=== PATIENT | male | born 1955 | race American Indian/Alaskan Native ===

== ENCOUNTER 2018-07-20 10:06 | Emergency (ER) | payer OTHER ==
--- NOTE | 2018-07-20 12:25 | Emergency Department Report ---
ED General Adult HPI - General Chief complaint: Back Pain/Injury Stated complaint: BACK PAIN Time Seen by Provider: 07/20/18 12:01 Source: patient Mode of arrival: Ambulatory Limitations: No Limitations - History of Present Illness Initial comments: Patient presents to the emergency department with chief complaint of shoulder/neck pain that started 2 weeks ago. Patient states that he woke up with this pain approximately 2 weeks ago and has only had relief with 800 mg of Motrin. Patient states it feels like his muscles or having spasms. Patient de nies any numbness, tingling, facial droop, slurred speech. -: Sudden Location: upper extremity Radiation: non-radiation Severity scale (0 -10): 10 Quality: aching Consistency: constant Improves with: rest Worsens with: movement Associated Symptoms: denies other symptoms Treatments Prior to Arrival: none - Related Data Previous Rx's Medication Instructions Recorded Last Taken Type Diazepam [Valium] 5 mg PO BID PRN #10 tablet 07/20/18 Unknown Rx Ibuprofen [Motrin] 800 mg PO Q8HR PRN #30 tablet 07/20/18 Unknown Rx predniSONE [Deltasone] 20 mg PO DAILY #15 tablet 07/20/18 Unknown Rx traMADol [Ultram] 50 mg PO Q6HR PRN #20 tablet 07/20/18 Unknown Rx Allergies Allergy/AdvReac Type Severity Reaction Status Date / Time No Known Allergies Allergy Verified 07/20/18 10:24 ED Review of Systems ROS: Stated complaint: BACK PAIN Other details as noted in HPI Comment: All other systems reviewed and negative Constitutional: denies: chills, fever Eyes: denies: eye pain, eye discharge, vision change ENT: denies: ear pain, throat pain Respiratory: denies: cough, shortness of breath, wheezing Cardiovascular: denies: chest pain, palpitations Endocrine: no symptoms reported Gastrointestinal: denies: abdominal pain, nausea, diarrhea Genitourinary: denies: urgency, dysuria Musculoskeletal: denies: back pain, joint swelling, arthralgia Skin: denies: rash, lesions Neurological: denies: headache, weakness, paresthesias Psychiatric: denies: anxiety, depression Hematological/Lymphatic: denies: easy bleeding, easy bruising ED Past Medical Hx - Past Medical History Previous Medical History?: No - Surgical History Past Surgical History?: No - Social History Smoking Status: Never Smoker Substance Use Type: Alcohol - Medications Home Medications: Home Medications Medication Instructions Recorded Confirmed Last Taken Type Diazepam [Valium] 5 mg PO BID PRN #10 tablet 07/20/18 Unknown Rx Ibuprofen [Motrin] 800 mg PO Q8HR PRN #30 tablet 07/20/18 Unknown Rx predniSONE [Deltasone] 20 mg PO DAILY #15 tablet 07/20/18 Unknown Rx traMADol [Ultram] 50 mg PO Q6HR PRN #20 tablet 07/20/18 Unknown Rx ED Physical Exam - General Limitations: No Limitations General appearance: alert, in no apparent distress - Head Head exam: Present: atraumatic, normocephalic - Eye Eye exam: Present: normal appearance - ENT ENT exam: Present: mucous membranes moist - Neck Neck exam: Present: normal inspection, other (tenderness to palpation of the left trapezius from insertion to origin with obvious spasms on exam) - Respiratory Respiratory exam: Present: normal lung sounds bilaterally. Absent: respiratory distress - Cardiovascular Cardiovascular Exam: Present: regular rate, normal rhythm. Absent: systolic murmur, diastolic murmur, rubs, gallop - Rectal Rectal exam: Present: deferred - Extremities Exam Extremities exam: Present: normal inspection - Back Exam Back exam: Present: normal inspection - Neurological Exam Neurological exam: Present: alert, oriented X3, CN II-XII intact. Absent: motor sensory deficit - Psychiatric Psychiatric exam: Present: normal affect, normal mood - Skin Skin exam: Present: warm, dry, intact, normal color. Absent: rash ED Course Vital Signs 07/20/18 10:24 Temperature 97.8 F Pulse Rate 85 Respiratory 16 Rate Blood Pressure 156/90 [Left] O2 Sat by Pulse 100 Oximetry ED Medical Decision Making - Medical Decision Making Discussed plan of care with the patient and the need to follow with his primary care physician for further evaluation and possible therapy Critical care attestation.: If time is entered above; I have spent that time in minutes in the direct care of this critically ill patient, excluding procedure time. ED Disposition Clinical Impression: Muscle spasm Disposition: DC-01 TO HOME OR SELFCARE Is pt being admited?: No Does the pt Need Aspirin: No Condition: Stable Instructions: Muscle Spasm (ED) Additional Instructions: return if worse Prescriptions: Diazepam [Valium] 5 mg PO BID PRN #10 tablet PRN Reason: Spasms Ibuprofen [Motrin] 800 mg PO Q8HR PRN #30 tablet PRN Reason: Pain predniSONE [Deltasone] 20 mg PO DAILY #15 tablet traMADol [Ultram] 50 mg PO Q6HR PRN #20 tablet PRN Reason: Pain Referrals: POLI ALVAREZ MD [Staff Physician] - 3-5 Days [facility] [Provider Group] - 3-5 Days [facility] [Provider Group] - 3-5 Days Time of Disposition: 12:24
== END 2018-07-20 12:34 | disposition home or self-care (01) ==
LOC: ED 10:06
DX: M62.838 Other muscle spasm (principal)
CPT/HCPCS: 99282

== ENCOUNTER 2021-08-17 09:43 | Emergency (ER) | payer MEDICARE, OTHER ==
[2021-08-17 10:11] VITALS: BP 156/82
[2021-08-17] MEDS ORDERED: IBUPROFEN 800 MG TAB PO ONE (12:50)
[2021-08-17] MEDS ORDERED: dexAMETHasone 4 MG/ML VIAL IM ONE (12:50)
[2021-08-17] MEDS ORDERED: CYCLOBENZAPRINE 10 MG TAB PO ONE (12:50)
--- NOTE | 2021-08-17 13:26 | XRay Report ---
LUMBOSACRAL SPINE 3 VIEWS INDICATION: pain sp fall. COMPARISON: None. IMPRESSION: There is mild dextrocurvature of the lumbar spine. Normal alignment on the lateral view. Moderate to severe degenerative changes are noted at the lowest 3 levels. L5-S1 is most affected. T here are moderate symmetric degenerative changes at the SI joints. No acute osseous or soft tissue a bnormality. Signer Name: Eb Ross Jr, MD Signed: 08/17/2021 1:21 PM Workstation Name: [id number]
--- NOTE | 2021-08-17 13:55 | Emergency Department Report ---
ED Back Pain/Injury HPI - General Chief Complaint: Back Pain/Injury Stated Complaint: BACK PAIN Time Seen by Provider: 08/17/21 12:49 Source: patient Limitations: No Limitations - Related Data Previous Rx's Medication Instructions Recorded Last Taken Type Cyclobenzaprine [Flexeril] 10 mg PO TID PRN #10 tablet 08/17/21 Unknown Rx predniSONE [Deltasone] 20 mg PO DAILY #5 tablet 08/17/21 Unknown Rx Allergies Allergy/AdvReac Type Severity Reaction Status Date / Time No Known Allergies Allergy Verified 08/17/21 10:08 ED Review of Systems ROS: Stated complaint: BACK PAIN Other details as noted in HPI Comment: All other systems reviewed and negative ED Past Medical Hx - Past Medical History Medical history: hypertension Family history: no significant family history - Social History Smoking Status: Never Smoker Alcohol use: rarely Drug use: none ED Back Pain Physical Exam - Exam General: Vital signs noted. No distress. Alert and acting appropriately. Back/Abdomen: No Abdominal Tenderness, No Perithoracic Tenderness, No Perilumbar Tenderness, No Sacroiliac Tenderness, No Flank Tenderness, No Straight Leg Raise Pain Neuro: Yes Normal Sensation, Yes Normal DTR's, Yes Normal Gait, No Motor Weakness ED Course Vital Signs 08/17/21 10:06 Temperature 97.8 F Pulse Rate 75 Respiratory 20 Rate Blood Pressure 156/82 O2 Sat by Pulse 97 Oximetry ED Medical Decision Making - Radiology Data Radiology results: report reviewed, image reviewed Critical care attestation.: If time is entered above; I have spent that time in minutes in the direct care of this critically ill patient, excluding procedure time. ED Disposition Clinical Impression: Lumbar back pain, Back spasm, Arthritis Disposition: HOME / SELF CARE / HOMELESS Is pt being admited?: No Does the pt Need Aspirin: No Condition: Stable Instructions: Arthritis, [id number] Additional Instructions: MOTRIN OR TYLENOL OVER THE COUNTER SHOULD BE USED FOR MILD PAIN MEDS ORDERED TODAY FOLLOW UP WITH PCP NEXT WEEK IF PAIN IS NOT BETTER REFERRAL BELOW W[facility] WILL HELP WITH PAIN Referrals: RAZA ALBARRAN MD [Staff Physician] - 3-5 Days Time of Disposition: 13:53
== END 2021-08-17 13:55 | disposition home or self-care (01) ==
LOC: ED 09:43
DX: M54.50 Low back pain, unspecified (principal); M62.830 Muscle spasm of back; M19.90 Unspecified osteoarthritis, unspecified site
CPT/HCPCS: 72100; 96372; 99283; J1100